=== PATIENT | female | born 1995 | race Caucasian/White ===

== ENCOUNTER 2017-04-11 22:48 | Emergency (ER) | payer OTHER ==
[~2017-04-11] VITALS: Ht 172.7 cm; Wt 64.0 kg
[~2017-04-11 22:48] MED LIST: ALBUTEROL17 GM INH; AURALGAN EAR DR14 ML OT; BIRTH CONTROL PILL; BIRTH CONTROL PILL PO; DIFLUCAN PO; DIFLUCAN100 MG PO; FLEXERIL10 MG PO; METRONIDAZOLE PO; NAPROXEN250 MG PO; NEO-POLY-DEXAMET5 ML OT; NO MEDICATIONS; VOLTAREN75 MG PO; ZOFRAN ODT4 MG PO; ZOFRAN ODT4 MG/UDTAB PO
[2017-04-11 23:45] LABS: URINE SOURCE CLEAN CATCH
[2017-04-11 23:47] LABS: URINE APPEARANCE CLEAR; URINE BILIRUBIN NEG (NEG); URINE BLOOD NEG (NEG); URINE COLOR YELLOW; URINE GLUCOSE NEG (NORM); URINE KETONE NEG (NEG); URINE LEUKOCYTE ESTERASE NEG (NEG); URINE NITRATE NEG (NEG); URINE PH 6.5 (5-8); URINE PROTEIN 1+ (NEG); URINE SPECIFIC GRAVITY 1.025 (1.003-1.035); URINE UROBILINOGEN 0.2 MG/DL (NORM)
[2017-04-11 23:53] LABS: CULTURE INDICATED? NO; MICRO INDICATED? YES; URINE BACTERIA NEG (NEG); URINE RBC 0-2 /[HPF] (0-2); URINE SQUAMOUS EPITHELIAL CELL MODERATE /[HPF]
[2017-04-11 23:54] LABS: URINE MUCUS PRESENT
== END 2017-04-12 00:12 | disposition home or self-care (01) ==
LOC: SED 22:48
PROVIDERS: Emergency Medicine
DX: R10.2 Pelvic and perineal pain (principal); J45.909 Unspecified asthma, uncomplicated
CPT/HCPCS: 81003; 84703; 99284